=== PATIENT | female | born 1980 | race Asian ===

== ENCOUNTER 2016-03-21 20:49 | Emergency (ER) | payer OTHER ==
[~2016-03-21] VITALS: Ht 160 cm; Wt 86.2 kg
[~2016-03-21 20:49] MED LIST: BACTRIM DS TAB1 EACH PO; DOXYCYCLINE MO100 MG PO; FERREX 150150 MG PO; FUROSEMIDE40 MG PO; K-DUR 10MEQ TA10 MEQ PO; KEFLEX500 MG PO; LASIX20 MG PO; LEVOTHYROXIN0.137 MG PO; MOBIC15 MG PO; PROGESTERONE100 MG PO; VITAMIN D250000 UNIT PO; VITAMIN D50000 IU PO
--- NOTE | 2016-03-21 21:50 | ED GI/GU/ABDOMINAL COMPLAINT ---
History of Present Illness General Chief Complaint: Female Urogenital Problems Stated Complaint: VAG BLEEDING Source: patient Exam Limitations: no limitations Vital Signs & Intake/Output Vital Signs & Intake/Output Vital Signs Date Time Temp Pulse Resp B/P Pulse O2 O2 Flow FiO2 Ox Delivery Rate 03/21 2109 98.2 80 18 158/92 100 Room Air Allergies Coded Allergies: Penicillins (RASH 03/21/16) amoxicillin (RASH 03/21/16) beef derived (bovine) (Intermediate, ITCHING 03/21/16) shrimp (Intermediate, ITCHING 03/21/16) Uncoded Allergies: EGGPLANT (Intermediate, ITCHING 05/15/12) Reconcile Medications Ergocalciferol (Vitamin D2) (Vitamin D2) 50,000 UNIT CAPSULE 1 CAP PO QW SUPPLEMENT (Reported) Levothyroxine Sodium 0.137 MG TAB 1 TAB PO DAILY AC THYROID (Reported) Triage Note: TRIAGE: PT TO ER C/C VAGINAL BLEEDING AND ABDOMINAL PAIN, ONSET YESTERDAY. REPORTS HAS USED 3 PADS TODAY. REPORTS SOME SMALL CLOTS WELL. LMP 01/31/2016. PT IS SEXUALLY ACTIVE, UNSURE OF STATUS, HAS NOT TAKEN ANY TESTS. Triage Nurses Notes Reviewed? yes ? N Is pt currently ? No Onset: Abrupt Duration: day(s): (2), constant, continues in ED Timing: recent history Radiation: no radiation No Modifying Factors: none HPI: 35-year-old female comes into emergency room for further evaluation of vaginal bleeding has been going on for the past 2 days. Patient reports that she missed her period in February and she usually has a normal cycle. She went through many pads yesterday. Some clots. Some lower abdominal cramping. Denies any fever chills vomiting. Denies any changes in bowel movement. Denies any urinary symptoms. Patient is sexually active. Patient's unsure whether she is . (BABAK MONREAL) Past History Travel History Traveled to [place] past 21 day No Medical History Any Pertinent Medical History? 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 Tobacco Use: Never used ETOH Use: denies use Illicit Drug Use: denies illicit drug use Family History Hx Contributory? No (BABAK MONREAL) Review of Systems Review of Systems Constitutional: Reports: no symptoms. EENTM: Reports: no symptoms. Respiratory: Reports: no symptoms. Cardiovascular: Reports: no symptoms. GI: Reports: no symptoms. Genitourinary: Reports: see HPI. Musculoskeletal: Reports: no symptoms. Skin: Reports: no symptoms. Neurological/Psychological: Reports: no symptoms. Hematologic/Endocrine: Reports: see HPI. Immunologic/Allergic: Reports: no symptoms. All Other Systems: Reviewed and Negative (BABAK MONREAL) Physical Exam Physical Exam General Appearance: well developed/nourished, no apparent distress, alert Head: atraumatic, normal appearance Eyes: Bilateral: normal appearance. Ears, Nose, Throat, Mouth: hearing grossly normal, moist mucous membrane Neck: normal inspection, full range of motion Respiratory: normal breath sounds, no respiratory distress Cardiovascular: regular rate/rhythm Gastrointestinal: normal bowel sounds, soft Back: normal inspection Extremities: normal range of motion Neurologic/Psych: awake, alert, oriented x 3 Skin: intact, normal color Core Measures ACS in differential dx? No Severe Sepsis Present: No Septic Shock Present: No (BABAK MONREAL) Progress Differential Diagnosis: AMI, appendicitis, biliary colic, bowel obstruction, diverticulitis, ectopic , esophageal varices, gastritis, hepatitis, hemorrhoids, ischemic bowel, inflamm bowel dis, intrauterine , kidney stone, ovarian cyst, ovarian torsion, pancreatitis, PID/cervicitis, peptic ulcer , PUD/GERD, perforated viscous, SBO, threatened AB, UTI/pyelo Plan of Care: Orders Procedure Date/time Status PARTIAL THROMBOPLASTIN TIME 03/21 2127 Complete PROTHROMBIN TIME 03/21 2127 Complete HUMAN BETA HCG SCREEN 03/21 2127 Complete COMPREHENSIVE METABOLIC PANEL 03/21 2127 Complete CBC WITHOUT DIFFERENTIAL 03/21 2127 Complete TYPE & SCREEN (NOT X-MATCH) 03/21 2127 Complete URINALYSIS 03/21 2115 Complete Laboratory Tests 03/21/16 2307: Urine Color SHOSHANA, Urine Clarity HAZY H, Urine pH 6.5, Ur Specific [place] 1.015, Urine Protein TRACE H, Urine Ketones NEG, Urine Nitrite NEG, Urine Bilirubin NEG, Urine Urobilinogen 0.2, Ur Leukocyte Esterase SMALL H, Ur Microscopic SEDIMENT EXAMINED, Urine RBC >75 H, Urine WBC 1-3 H, Ur Epithelial Cells RARE, Urine Hemoglobin LARGE H, Urine Glucose NEG 03/21/16 2150: Anion Gap 17 H, Estimated GFR > 60, BUN/Creatinine Ratio 20.0, Glucose 72, Calcium 9.1, Total Bilirubin 1.4 H, AST 19, ALT 31, Alkaline Phosphatase 92, Total Protein 8.0, Albumin 4.2, Globulin 3.8, Albumin/Globulin Ratio 1.1, Total Beta HCG NEGATIVE, PT 11.8, INR 1.13, APTT 30, CBC w Diff NO MAN DIFF REQ, RBC 4.15 L, MCV 84.6, MCH 28.1, RDW 13.5, MPV 9.6, Gran % 54.0, Lymphocytes % 37.5, Monocytes % 6.4, Eosinophils % 1.7, Basophils % 0.4, Absolute Granulocytes 4.0, Absolute Lymphocytes 2.8, Absolute Monocytes 0.5, Absolute Eosinophils 0.1, Absolute Basophils 0, PUBS MCHC 33.2 Initial ED EKG: none (BABAK MONREAL) Departure Departure Disposition: HOME OR SELF CARE Condition: Stable Clinical Impression Primary Impression: Vaginal bleeding Referrals: GURDEEP WETZEL MD (PCP/Family) Additional Instructions: Follow-up with your intensive care ambulance paramedic. Return to the emergency room immediately if any other concerns worsening symptoms. Increase her potassium intake over the next 48 hours. Eat 2 bananas per day. Please go over all results of today's visit with your primary care doctor. Contact your primary care doctor to let them know you were here in the emergency room. There may be nonspecific findings which may not be related to your visit today here in the emergency room but may require further evaluation and chronic monitoring by your primary care doctor. If you had a laceration today the chance of foreign body always remains. You should follow-up with your primary care doctor for recheck in 3-5 days for a wound check. If you had an x-ray done there is a chance that a fracture could have been missed on initial read and you should follow-up with your primary care doctor for repeat x-rays if symptoms persist. If your blood pressure was elevated here in the emergency room please have rechecked by her primary care doctor within the next 48 hours by your primary care doctor. If you were prescribed a narcotic here in the emergency room or any type of controlled substances you're not allowed to drive while taking this medication or operate any type of heavy machinery. Narcotics can make you feel lightheaded dizziness nausea and can cause constipation. You may need to mushroom picker a stool softener. Thank you for choosing [facility] emergency room. Please return to the emergency room immediately if you have any other concerns worsening of symptoms. Departure Forms: Customer Survey General Discharge Information Comments Hemodynamically stable. 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 Return if any other concerns. Reevaluated multiple times. Patient feels better. Vaginal bleeding has decreased from yesterday. Likely the patient's normal menstrual period. Return if any other concerns. (BABAK MONREAL) PA/PLUG SHAPER HAND Co-Sign Statement Statement: ED Attending supervision documentation- [] I saw and evaluated the patient. I have also reviewed all the pertinent lab results and diagnostic results. I agree with the findings and the plan of care as documented in the PA's/PLUG SHAPER HAND's documentation. [X] I have reviewed the ED Record and agree with the PA's/PLUG SHAPER HAND's documentation. [] Additions or exceptions (if any) to the PAs/PLUG SHAPER HAND's note and plan are summarized below: [] (MARGOTH HAYNES,SAHANTI Phillips)
[2016-03-21 22:13] LABS: ABSOLUTE BASOPHIL COUNT 0 /CUMM (0.0-0.2); ABSOLUTE EOSINOPHIL COUNT 0.1 /CUMM (0.0-0.7); ABSOLUTE LYMPH COUNT 2.8 /CUMM (1.2-3.4); ABSOLUTE MONOCYTE COUNT 0.5 /CUMM (0.10-0.60); BASOPHIL % 0.4 % (0.0-2.0); EOSINOPHIL % 1.7 % (0-5); HEMATOCRIT 35.1 % (37-47); MEAN CORPUSCULAR HGB 28.1 PG (27.0-31.0); MEAN CORPUSCULAR HGB CONC 33.2 G/DL (33.0-37.0); MEAN CORPUSCULAR VOLUME 84.6 FL (81.0-99.0); MEAN PLATELET VOLUME 9.6 FL (7.4-10.4); PLATELET COUNT 184 /CUMM (130-400); RBC DISTRIBUTION WIDTH 13.5 % (11.5-14.5); RED BLOOD CELL CT 4.15 /CUMM (4.20-5.40); WHITE BLOOD CELL COUNT 7.5 /CUMM (4.8-10.8)
[2016-03-21 22:30] LABS: PT 11.8 SEC (9.4-12.5); PTT 30 SEC (25-37)
[2016-03-22 01:12] VITALS: BP 149/82
== END 2016-03-22 01:24 ==
LOC: ERH 20:49
PROVIDERS: Pediatrics
DX: N93.9 Abnormal uterine and vaginal bleeding, unspecified (principal)
CPT/HCPCS: 81001; 81025